=== PATIENT | female | born 1985 | race Hispanic/Latino ===

== ENCOUNTER 2024-06-28 15:15 | Emergency (ER) | payer SELFPAY ==
[~2024-06-28] VITALS: Ht 160 cm; Wt 52.6 kg
--- NOTE | 2024-06-28 16:06 | ERN ---
ED Note History of Present Illness Stated Complaint: BLEEDING 11WKS Chief Complaint: Vaginal Bleeding Time Seen by MD: 15:29 Dictation: PATIENT IS A 39-YEAR-OLD FEMALE G-TUBE P1, APPROXIMATE 11 WEEKS HAS HAD NO CARE. SHE IS ASSIGNED TO DR. LEE SEGAL HOWEVER HAS NOT HAD AN APPOINTMENT. SHE IS COMING IN FOR PELVIC CRAMPING WITH VAGINAL BLEEDING ONSET YESTERDAY. She does state that she had been to [place] on Wednesday and had labs drawn, does have him an appointment with Dr.uvaldo Sam on Wednesday. She is on vitamins. Allergies: Coded Allergies: No Known Drug Allergies (Unverified Allergy, Unknown, 06/28/24) Past Medical History Past Medical History: No Pertinent History Surgical History: None : 2 Para: 1 Aborts: 0 RN Note Reviewed/Agreed w/PFSH: Yes Review of System Dictation CONSTITUTIONAL: NEGATIVE EXCEPT FOR HPI HEAD/FACE: NEGATIVE EXCEPT FOR HPI EENT: NEGATIVE EXCEPT FOR HPI RESPIRATORY: NEGATIVE EXCEPT FOR HPI GASTROINTESTINAL/ABDOMINAL: NEGATIVE EXCEPT FOR HPI GENITOURINARY: NEGATIVE EXCEPT FOR HPI PELVIC CRAMPING WITH VAGINAL BLEEDING SPOTTING MUSCULOSKELETAL: NEGATIVE EXCEPT FOR HPI INTEGUMENTARY: NEGATIVE EXCEPT FOR HPI NEUROLOGICAL/PSYCH: NEGATIVE EXCEPT FOR HPI HEMATOLOGIC/LYMPHATIC: NEGATIVE EXCEPT FOR HPI ALL SYSTEMS NEGATIVE, EXCEPT NOTED ABOVE. 13 POINT REVIEW OF SYSTEMS ASSESSED AND ALL NEGATIVE EXCEPT FOR ABOVE. Initial Vital Sign VS Vital Signs Date Time Temp Pulse Resp B/P (MAP) Pulse Ox O2 Delivery O2 Flow Rate FiO2 06/28/24 15:22 98.1 83 16 138/96 99 Room Air 06/28/24 16:26 0 21 Physical Exam Dictation VITAL SIGNS REVIEWED GENERAL APPEARANCE: ALERT, ORIENTED X 3, NO ACUTE DISTRESS, WELL DEVELOPED, NOURISHED. HEAD AND FACE: NON-TRAUMATIC. EYES: PERRL, PINK CONJUNCTIVAS, EYELID NO TRAUMA, ANTERIOR CHAMBER WITH ARCUS SENILIS. EARS: PINNAS INTACT AND NO SIGNS OF TRAUMA OR ERYTHEMA EAR CANALS CLEAR AND NO DISCHARGE TM NO ERYTHEMA NOSE: NO DISCHARGE, NO BLEEDING. OROPHARYNX: MOUTH NORMAL, TONGUE PINK, PHARYNX CLEAR,NO ERYTHEMA, TONSILS NO EXUDATES, NO ABSCESSES NOTED, MUCOUS MEMBRANE MOIST NECK: SUPPLE, NON-TENDER, NO THYROMEGALY, NO MASSES, NO JVD, NO BRUITS BREAST:DEFERRED CHEST:NO TENDERNESS, NO CREPITUS, NO PARADOXICAL MOVEMENT, NO RETRACTIONS LUNGS:CLEAR, WELL-VENTILATED, SYMMETRIC, NO RALES, NO WHEEZING, NO RHONCHI, NO STRIDOR, GOOD BREATH SOUNDS BILATERALLY HEART: REGULAR RATE, REGULAR RHYTHM, NO MURMUR, NO GALLOPS VASCULAR: NO PERIPHERAL EDEMA, ABDOMEN: SOFT, POSITIVE BOWEL SOUNDS, NONDISTENDED, NO GUARDING, NONTENDER, NO REBOUND, NO MASSES NO HEPATOMEGALY, NO SPLENOMEGALY, NO DURHAM'S SIGN, NO HERNIAS. RECTAL: DEFERRED GENITAL: DEFERRED NEUROLOGICAL: NORMAL SPEECH, MOTOR FUNCTION INTACT, SENSORY FUNCTION INTACT MUSCULOSKELETAL: NECK NONTENDER, FULL RANGE OF MOTION, BACK NONTENDER, FULL RANGE OF MOTION, EXTREMITIES: NONTENDER, FULL RANGE OF MOTION SKIN: COLOR PINK, DRY, NO TURGOR, NO RASH, NO LACERATIONS, NO ABRASIONS, NO CONTUSIONS. LYMPHATIC: DEFERRED Results (Laboratory/Radiology) Laboratory/Radiology Laboratory Tests Test 06/28/24 16:39 White Blood Count 7.7 K/uL (4.8-10.8) Red Blood Count 5.06 MIL/uL (4.00-5.50) Hemoglobin 11.7 g/dL (12.0-16.0) L Hematocrit 37.6 % (36-48) Mean Corpuscular Volume 74.3 fL (79-99) L Mean Corpuscular Hemoglobin 23.1 pg (27.0-33.0) L Mean Corpuscular Hemoglobin Concent 31.1 g/dL (32.0-36.0) L Red Cell Distribution Width 26.6 % (11.0-15.5) H Platelet Count 303 K/uL (130-400) Mean Platelet Volume 9.9 fL (7.5-10.5) Immature Granulocyte % (Auto) 0.3 % (0-1) Neutrophils (%) (Auto) 64.8 % (40.0-77.0) Lymphocytes (%) (Auto) 27.8 % (21.0-51.0) Monocytes (%) (Auto) 5.8 % (3.0-13.0) Eosinophils (%) (Auto) 0.8 % (0.0-8.0) Basophils (%) (Auto) 0.5 % (0.0-5.0) Neutrophils # (Auto) 5.0 K/uL (1.8-7.7) Lymphocytes # (Auto) 2.2 K/uL (1.0-4.8) Monocytes # (Auto) 0.5 K/uL (0.1-1.0) Eosinophils # (Auto) 0.06 K/uL (0.00-0.70) Basophils # (Auto) 0.04 K/uL (0.00-0.20) Absolute Immature Granulocyte (auto 0.02 K/uL (0-1) Nucleated Red Blood Cells 0.0 % (0.0-0.19) Red Blood Cell Morphology See comments Sodium Level 138 mmol/L (136-145) Potassium Level 3.3 mmol/L (3.5-5.1) L Chloride Level 102 mmol/L (101-111) Carbon Dioxide Level 29 mmol/L (21-32) Blood Urea Nitrogen 7 mg/dL (7-18) Creatinine 0.6 mg/dL (0.5-1.0) Glomerular Filtration Rate Calc 116 mL/min (>90) Random Glucose 88 mg/dL (70-105) Total Calcium 8.8 mg/dL (8.5-10.1) Human Chorionic Gonadotropin, Quant 7824 mIU/mL (0-5) H ULTRASOUND OF THE PELVIS ULTRASOUND ABD VASCULAR LIMITED INDICATION: Pelvic pain COMPARISONS: None TECHNIQUE: Transabdominal real-time sonographic images were acquired earlier, and subsequently made available for review. FINDINGS: The uterus measures 10.0 x 7.0 x 7.0 cm. The uterus is normal in echotexture and contour. Single intrauterine gestation corresponds to sonographic gestational age of 7 weeks 2 days based on crown-rump length of 1.2 cm. Gestational sac diameter measures 3.8 cm . No abnormal subchorionic hypoechoic area demonstrated. heart rate was not well-demonstrated with M-mode or color Doppler. No evidence for yolk sac. The right ovary measures 2.0 x 1.0 x 1.0 cm. The right ovary is normal in size, shape and echogenicity. No right adnexal masses demonstrated. Color Doppler flow is normal throughout the right ovary. Spectral Doppler analysis demonstrates a normal waveform pattern. The left ovary was not well-demonstrated. No free pelvic fluid demonstrated. IMPRESSION: Findings suggesting demise. Labs Reviewed?: Yes ED Course ED Course Orders Procedure Category Date Status Time Cbc With Differential LAB 06/28/24 Complete 16:04 Hcg,Quantitative LAB 06/28/24 Complete 16:04 Type And Screen BBK 06/28/24 Complete 16:04 Basic Metabolic Panel LAB 06/28/24 Complete 16:04 Us Ob <14 Weeks US 06/28/24 Resulted 16:06 Potassium Bicarb/Cit PHA 06/28/24 Complete Ac 25meq (K-Lyte Ta 18:00 Current Medications Medications (Trade) Dose Ordered Sig/[facility] Route PRN Reason Start Time Stop Time Status Last Admin Dose Admin Potassium Bicarbonate (K-Lyte Tablet Eff 25 Meq Tablet.eff) 25 meq ONCE ONCE PO 06/28/24 18:00 06/28/24 18:01 DC 06/28/24 17:58 Vital Signs Date Time Temp Pulse Resp B/P (MAP) Pulse Ox O2 Delivery O2 Flow Rate FiO2 06/28/24 17:54 98.6 102 16 165/90 98 Room Air* 0 21 06/28/24 16:26 98.1 80 16 135/95 98 Room Air* 0 21 06/28/24 15:22 98.1 83 16 138/96 99 Room Air 1750/spoke with patient at length with Vandana SANDOVAL interpreting. Patient was made aware that her quantitative level is low, there is no heart activity on ultrasound. Diagnosis we will be intrauterine feed her and demise with retained POC. She was informed to see or call Dr. Sam 1st thing in the morning for an appointment. She agreed all questions were answered. Medical Decision Making MDM Medical discharge making based on labs and ultrasound for vaginal bleeding. Ultrasound demonstrates demise with no heart activity. Patient discharged home to follow up with Dr. Jean Carlos Sam tomorrow. DX & DISP Disposition: Discharge Departure Impression: Primary Impression: demise, less than 22 weeks Additional Impression: Hypokalemia Condition: Stable Scripts Acetaminophen with Codeine (Acetaminophen-Cod #3 Tablet) 300 Mg-30 Mg Tablet 1 TAB PO Q4H PRN for Moderate to severe pain, #12 TAB 0 Refills Prov: SHAWNA WINCHESTER REVENUE INVESTIGATOR 06/28/24 Additional Instructions: Follow-up with primary care provider in 1 to 2 days. Take medications as directed here in the emergency room. Okay to continue home medications unless otherwise discussed during your visit in the emergency room today. Return to your nearest emergency room if symptoms worsen or if there is no improvement. Call 911 if you need immediate assistance. Take Tylenol or Motrin over-the- counter as needed and if no contraindications are present. Increase oral hydration. A wound culture or urine culture was ordered here in the emergency room department please follow-up with primary care provider and advise them to get repeat ports from our facility. If you had any Gavino wrap/splints that were applied here, please do not remove them until you see your primary care or specialty. 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 Referrals: SELF,REFERRAL (PCP) Time of Disposition: 17:55 I have reviewed the case, and I agree with, Diagnosis and Plan SHAWNA WINCHESTER NP Jun 28, 2024 16:06
[2024-06-28 16:49] LABS: BASOPHILS # (AUTO) 0.04 K/uL (0.00-0.20); BASOPHILS % (AUTO) 0.5 % (0.0-5.0); EOSINOPHILS # (AUTO) 0.06 K/uL (0.00-0.70); EOSINOPHILS % (AUTO) 0.8 % (0.0-8.0); HEMATOCRIT 37.6 % (36-48); IMMATURE GRANULOCYTE ABSOLUTE 0.02 K/uL (0-1); LYMPHOCYTES # (AUTO) 2.2 K/uL (1.0-4.8); LYMPHOCYTES % (AUTO) 27.8 % (21.0-51.0); MEAN CORPUSCULAR HEMOGLOBIN 23.1 pg (27.0-33.0); MEAN CORPUSCULAR HGB CONC 31.1 g/dL (32.0-36.0); MEAN CORPUSCULAR VOLUME 74.3 fL (79-99); MONOCYTES # (AUTO) 0.5 K/uL (0.1-1.0); MONOCYTES % (AUTO) 5.8 % (3.0-13.0); NEUTROPHILS % (AUTO) 64.8 % (40.0-77.0); PLATELET COUNT (AUTO) 303 K/uL (130-400); RED BLOOD CELL COUNT(AUTO) 5.06 MIL/uL (4.00-5.50); RED CELL DISTRIBUTION WIDTH 26.6 % (11.0-15.5); WHITE BLOOD COUNT (AUTO) 7.7 K/uL (4.8-10.8)
[2024-06-28 17:00] LABS: CREATININE 0.6 mg/dL (0.5-1.0); POTASSIUM 3.3 mmol/L (3.5-5.1)
--- NOTE | 2024-06-28 17:35 | HMCIMG ---
ULTRASOUND OF THE PELVIS ULTRASOUND ABD VASCULAR LIMITED INDICATION: Pelvic pain COMPARISONS: None TECHNIQUE: Transabdominal real-time sonographic images were acquired earlier, and subsequently made available for review. FINDINGS: The uterus measures 10.0 x 7.0 x 7.0 cm. The uterus is normal in echotexture and contour. Single intrauterine gestation corresponds to sonographic gestational age of 7 weeks 2 days based on crown-rump length of 1.2 cm. Gestational sac diameter measures 3.8 cm . No abnormal subchorionic hypoechoic area demonstrated. heart rate was not well-demonstrated with M-mode or color Doppler. No evidence for yolk sac. The right ovary measures 2.0 x 1.0 x 1.0 cm. The right ovary is normal in size, shape and echogenicity. No right adnexal masses demonstrated. Color Doppler flow is normal throughout the right ovary. Spectral Doppler analysis demonstrates a normal waveform pattern. The left ovary was not well-demonstrated. No free pelvic fluid demonstrated. IMPRESSION: Findings suggesting demise.
[2024-06-28 17:54] VITALS: BP 165/90; PULSE 102; RESP 16; TEMP 98.6; O2SAT 98
[2024-06-28] MEDS: PoTASSium BIcarbonate/CIT AC 25 MEQ TABLET.EFF PO ONE (17:58)
[2024-06-28] MEDS ORDERED: ACET-2079 PO (18:13)
== END 2024-06-28 18:01 | disposition home or self-care (01) ==
LOC: EDH 15:15
DX: O02.1 Missed abortion (principal); O99.281 Endocrine, nutritional and metabolic diseases complicating pregnancy, first trimester; E87.6 Hypokalemia; O26.891 Other specified pregnancy related conditions, first trimester; R10.2 Pelvic and perineal pain; Z3A.11 11 weeks gestation of pregnancy
CPT/HCPCS: 36415; 76801; 80048; 84702; 85025; 86850; 86900; 86901; 99284